=== PATIENT | male | born 1950 | race Caucasian/White ===

== ENCOUNTER 2023-11-06 21:34 | Emergency (ER) | payer MEDICARE, OTHER, SELFPAY ==
[2023-11-06 21:49] VITALS: BP 157/86
[2023-11-06 23:00] VITALS: BP 135/67
[2023-11-06 23:06] LABS: % Basophils 0.3 % (0-2); % Eosinophils 1.4 % (0-6); % Immature Granulocytes 0.3 % (0-0.5); % Lymphocytes 36.1 % (20.5-51.1); % Monocytes 8.6 % (1.7-9.3); % Neutrophils 53.3 % (42.2-75.2); Absolute Eosinophils 0.1 10^3/uL (0-0.7); Absolute Lymphocytes 3.5 10^3/uL (1.2-3.4); Absolute Monocytes 0.8 10^3/uL (0.1-0.6); Absolute Neutrophils 5.2 10^3/uL (1.4-6.5); Hematocrit 38.9 % (39.0-52.0); Hemoglobin 14.5 g/dL (13.0-18.0); Mean Corp Hgb Conc. 37.3 g/dL (33.0-37.0); Mean Corpuscular Hgb 33.7 pg (27.0-31.0); Mean Corpuscular Volume 90.5 fL (80.0-94.0); Mean Platelet Volume 10.7 fL (7.4-10.4); Nucleated Red Blood Cells % 0 % (-); Platelet Count 222 10^3/uL (130-400); Red Cell Dist. Width 12.1 % (11.5-14.5); White Blood Cell Count 9.8 10^3/uL (4.8-10.8)
[2023-11-06 23:35] LABS: ALT (SGPT) 26 U/L (0-50); AST (SGOT) 32 U/L (17-59); Albumin 4.2 g/dl (3.5-5.0); Alkaline Phosphatase 84 U/L (38-126); Blood Urea Nitrogen 25 mg/dl (9-20); Calcium 9.2 mg/dl (8.4-10.2); Carbon Dioxide 26 mmol/L (22-30); Chloride 100 mmol/L (98-107); Glucose 120 mg/dl (70-99); Potassium 3.8 mmol/L (3.5-5.1); Sodium 139 mmol/L (135-145); Total Bilirubin 0.8 mg/dl (0.2-1.3); Total Protein 6.6 g/dl (6.3-8.2); eGFR > 60.00
--- NOTE | 2023-11-07 00:31 | ED.GENMED ---
History of Present Illness
General
Chief Complaint: Dizziness
Source: patient
Exam Limitations: none
Time Seen by Provider: 11/06/23 23:07
History of Present Illness
History of Present Illness:
This is a 73 year old male that comes in by ambulance with c/o dizziness. States that he was playing pool. States that he had made his shot and went to the table to sit down. States that he got back up and walked to the table and he was dizzy.
States that his BP went up and he had a hot spell. State that his BP did come down. States that he was nauseated and vomited. States that he did work outside today and was not drinking much. Denies any fever, chills, chest pain, SOB, abd pain,
diarrhea, headache, urinary burning.
Past History
Past History
ED Past Medical History: Cancer (Melanoma) and Other (Dizziness, Vertigo, Hydrocephalus, Neuropathy. Meniere's disease)
ED Past Surgical History: Orthopedic (Knee surgery 2 on the left and 1 on the right) and Tonsilectomy
Social History
Tobacco: Former smoker
Alcohol: Occasional
Personal:
Living: alone
Review of Systems
Review of Systems
All Other Systems: ROS reviewed and negative except as documented in HPI and ROS
Constitutional: Reports no symptoms; Denies fever or chills
EENT: Reports no symptoms
Respiratory: Reports no symptoms; Denies cough or trouble breathing
Cardiac: Reports no symptoms; Denies chest pain
ABD/GI: Reports nausea and vomiting; Denies abdominal pain or diarrhea
: Reports no symptoms; Denies dysuria, frequency or urgency
Musculoskeletal: Reports no symptoms
Skin: Reports no symptoms
Neurological: Reports dizzy; Denies headache
Psychiatric: Reports no symptoms
Phy Exam
General Physical Exam
General Presentation: well appearing and no apparent distress
General age: appears stated age
General Skin: warm and dry
General Habitus: elderly
General Mental: alert
General Hydration: dry mucous membranes
ENT Exam
ENT Exam: TM's normal, pharynx normal and neck supple
Eye Exam
Eye Exam: EOMI
Cardiovascular Exam
Cardiovascular Exam: regular rate/rhythm, no edema and normal peripheral pulses
Pulmonary Exam
Pulmonary Exam: lungs clear, no respiratory distress, no rales, chest non tender, no crackles, no rhonchi, no wheezing and no cough
Gastrointestinal Exam
Gastrointestinal Exam: normal bowel sounds, non tender, soft, no organomegaly, no pulsatile mass and non distended
Musculoskeletal Exam
Musculoskeletal Exam: full ROM and no edema
Skin Exam
Skin Exam: normal color, warm/dry, no rash and no petechia
Psychiatric Exam
Psychiatric Exam: normal mood/affect
Course
Orders/Labs/Results
Orders:
Orders
11/06/23 21:52
EKG [Electrocardiogram (*1)] Urgent
Reason for Study: Vertigo / Dizzy
11/06/23 21:53
EKG- Treatment ONCE
11/06/23 22:34
Complete Blood Count/With Diff Urgent
11/06/23 23:13
Comprehensive Metabolic Panel Urgent
Comment: REDRAW
11/07/23 00:31
CT Head W/o Iv Contrast Urgent
Comment:
Reason For Exam: Dizziness
0.9% Sodium Chloride 1000 ml [Nss] 1,000 ml IV BOLUS
Abnormal Lab Results
11/06/23 11/06/23
22:34 23:13
RBC 4.30 L 10^6/uL
(4.70-6.10)
Hct 38.9 L %
(39.0-52.0)
MCH 33.7 H pg
(27.0-31.0)
MCHC 37.3 H g/dL
(33.0-37.0)
MPV 10.7 H fL
(7.4-10.4)
Absolute Lymphs (auto) 3.5 H 10^3/uL
(1.2-3.4)
Absolute Monos (auto) 0.8 H 10^3/uL
(0.1-0.6)
BUN 25 H mg/dl
(9-20)
Glucose 120 H mg/dl
(70-99)
11/06/23 22:34
11/06/23 23:13
Dehydration. Glucose nonfasting.
Vital Signs
Initial and Last Documented VS:
Initial Vital Signs
Temp Pulse Resp BP Pulse Ox
98.4 F 57 18 157/86 98
11/06/23 21:49 11/06/23 21:49 11/06/23 21:49 11/06/23 21:49 11/06/23 21:49
Last Documented Vital Signs
Temp Pulse Resp BP Pulse Ox
98.4 F 53 16 135/67 98
11/06/23 21:49 11/06/23 23:45 11/07/23 01:37 11/06/23 23:00 11/06/23 23:45
MDM/Problems Addressed
Differential Diagnosis Includes:
Dehydration. Vertigo
MDM/Problems Addressed:
This is a 73 year old male that was out playing pool and became dizzy. State that he did work outside all day and was not drinking water.
Will check labs. CT head and given IV fluids. Patient at this times denies any dizziness and was able to get up and walk to the bathroom without any difficulty.
Back into see patient. Explained that his CT of the head is normal and that his blood work shows that he is dehydrated. encouraged patient to increase his water intake to 8-8oz glasses daily. Follow up with the family doctor for recheck. Return
with any concerns.
Chronic conditions affecting care:
Vertigo
Acute Exacerbation and/or Progression of Chronic Illness:
Vertigo
*Radiology
Radiology exam reviewed: radiology read reviewed (CT head night hawk- NO acute intracranial finding. NO evidence of intracranial hemorrhage, mass-effect, midline shift, or extra-axial fluid collection. Dilated ventricles which appear to be out of
proportion to degree of cerebral volume loss, consider correlation for NPH. MIld chronic microvascular ) and other (CT cont- ischemic disease. )
*Pulse Oximetry
Patient hypoxic: no
*EKG
Interpreted by ED Provider?: Yes
Heart Rate: 51
Rate: bradycardiac
Rhythm: sinus
[place]: normal axis
Interval: normal interval
QRS Pattern: normal QRS
Ischemia: no ischemia
*Slag Mixer Interpretation
Rate: bradycardiac
Heart Rate: 56
Rhythm: sinus (Yovanny)
*Critical Care Note
Total Time (30-74mins, 75-104mins- exclusive of procedures): Not Applicable
ED Attending Note
-
Portions of this chart may have been created with voice recognition software.� Occasional wrong word or��sound alike� substitutions may have occurred due to the inherent limitations of voice recognition software.
Discharge Plan
Departure
Patient Disposition: Home (Routine Discharge)
Date of Disposition: 11/07/23
Time of Disposition: 01:47
Patient with high blood pressure during this ER visit?: Yes
Condition: Good
Covid-19: Not Applicable
Discharge Problem:
Dehydration, Dizziness
Instructions: Dehydration, Adult ED, Dizziness, BLOOD PRESSURE
Referrals:
Kai Levy MD [Family Provider] - Follow up in 2-3 days
Activity Restrictions/Additional Instructions:
As discussed, your blood work shows that you were Dehydrated. Please increase your water intake to 8-8oz glasses daily. Dehydration can cause dizziness. Your CT of the head is normal. Please follow up with the family doctor for recheck. IF YOU
HAVE INCREASED DIZZINESS OR YOU HAVE ANY OTHER CONCERNS PLEASE RETURN TO THE EMERGENCY ROOM
Interventions
Interventions:
*Risk Screen - Suicide Last Done: 11/06/23 21:49
*General Assessment Last Done: 11/06/23 21:49
ED- Neurological Assessment Last Done: 11/06/23 22:50
ED Swallowing Screen Last Done: 11/06/23 22:50
Discharge Date and Time
Print Language: BULGARIAN
[2023-11-07] MEDS: NSS 1000 IV (00:35)
[2023-11-07 01:55] VITALS: BP 134/74
== END 2023-11-07 02:09 | disposition home or self-care (01) ==
LOC: EMR 21:34
PROVIDERS: Emergency Medicine; EMERGENCY PHYSICIAN Student in an Organized Health Care Education/Training Program; FAMILY PHYSICIAN Family Medicine
DX: E86.0 Dehydration (principal); R42 Dizziness and giddiness; R03.0 Elevated blood-pressure reading, without diagnosis of hypertension; Z87.891 Personal history of nicotine dependence
CPT/HCPCS: 99285; 96360; 70450; 80053; 85025; 93005

== ENCOUNTER → 2024-07-12 11:34 | Outpatient (REF) | payer MEDICARE, OTHER, SELFPAY | LOC: HWRAD 11:34 | PROVIDERS: ATTENDING PHYSICIAN Nurse Practitioner; FAMILY PHYSICIAN Family Medicine | DX: M25.551 Pain in right hip (principal) | CPT/HCPCS: 73502 ==

== ENCOUNTER → 2024-09-01 13:11 | Outpatient (REF) | payer MEDICARE, OTHER, SELFPAY | LOC: MRI 3T 13:11 | PROVIDERS: ATTENDING PHYSICIAN Family Medicine | DX: R42 Dizziness and giddiness (principal); R41.3 Other amnesia | CPT/HCPCS: 70553; A9575 ==

== ENCOUNTER → 2024-12-23 13:11 | Outpatient (REF) | payer MEDICARE, OTHER, SELFPAY | LOC: SDSPAT 13:11 | PROVIDERS: ATTENDING PHYSICIAN Surgery; FAMILY PHYSICIAN Family Medicine | DX: K40.90 Unilateral inguinal hernia, without obstruction or gangrene, not specified as recurrent (principal); Z01.818 Encounter for other preprocedural examination | CPT/HCPCS: 36415; 93005 ==

== ENCOUNTER 2025-01-17 06:25 | Day surgery (SDC) | payer MEDICARE, OTHER, SELFPAY ==
[2024-12-23 13:45] VITALS: BMI 25.4
[2025-01-17] VITALS (10 sets, daily range): BP systolic 112–126; BP diastolic 58–71; BMI 25.4
[2025-01-17] MEDS: TYLENOL 1000 MG PO (08:47)
[2025-01-17] MEDS: NORMOSOL-R/PLASMALYTE-A 1000 IV (08:47)
--- NOTE | 2025-01-17 10:12 | OR.RPT ---
Operative Report
Operative Report
Primary Surgeon: Sydni
Assisting: Vanessa PARKER
Pre-op Diagnosis: Bilateral inguinal hernias
Post-op Diagnosis: Same
Procedure Performed: Robot assisted laparoscopic repair bilateral inguinal hernias
Anesthesia Type: GETA
Specimen / Cultures: None
Estimated Blood Loss: 10cc
Complications: None immediate
Operative Findings: Bilateral indirect defects, no cord lipomas, fat cord right side; B/L XL MID 3D max
Date of Surgery: 01/17/25
Indications: This 74M developed a symptomatic left inguinal hernia. On exam a right inguinal hernia was identified. He asked that we repair both sides today. Robot assisted laparoscopic repair was elected.
Description of procedure:� The patient was taken to the operating room and positioned into supine position. The patient�s abdomen was prepped and draped in standard sterile fashion. A time-out was completed verifying correct patient, procedure,
site, positioning, and implants and special equipment prior to beginning this procedure.
A stab incision was made in the left upper quadrant, a Veress needle was inserted and proper position was confirmed by aspiration and saline drop test. Following this, pneumoperitoneum was created with insufflation of carbon dioxide to 12 mmHg. Then
a 8mm robotic trocar was inserted above and to the left of the umbilicus. A laparoscope was inserted and the area of initial trocar entry and Veress needle placement were both inspected and no injuries were found. Two 8mm trocars were then placed
lateral to the rectus sheath under direct visualization.
Both inguinal regions were inspected and the median umbilical ligament, medial umbilical ligament, and lateral umbilical fold were identified. Attention was turned to the right groin. The peritoneum was incised transversely above the defect and a
flap was developed in the caudad direction. Erasmo�s ligament was identified ultimately dissected to its junction with the iliac vein and the space of Retzius was developed bluntly. The dissection was continued inferiorly to the iliopubic tract,
with care taken to avoid injury to the femoral branch of the genitofemoral nerve and the lateral femoral cutaneous nerve. The cord structures were parietalized.
The direct space was inspected and a hernia defect was not identified. The femoral space was inspected and no defect was identified. The indirect space was inspected a defect was identified and reduced. The canal was inspected and no cord lipoma was
identified. The cord was fatty.
Attention was turned to the left groin and the above process was repeated with similar findings, though the cord was less fatty on this side.
Extra large right and left MID 3D max mesh was passed through a trocar. The mesh was placed into the preperitoneal space and moved into position to lay flat and completely cover the direct, indirect, and femoral spaces with overlap at the midline.
The mesh was secured into place using 2-0 vicryl suture to Erasmo�s ligament medially and laterally. Care was taken to avoid the inferolateral triangles containing the iliac vessels and genital nerves. The peritoneal flap was closed over the mesh
and secured with 2-0 monocryl stratafix suture in similar positions of safety. A 14g angiocath was used to decompress the preperitoneal space revealing good seal and all mesh in good position without folding or curling.
After ensuring adequate hemostasis, the trocars were removed and the pneumoperitoneum allowed to escape. The trocar incisions were closed at the skin level using 4-0 monocryl and topical skin adhesive. Marcaine 0.25% with epinephrine was infiltrated
into the skin around the port incisions. All counts were correct and the patient tolerated the procedure well and was taken to the postanesthesia care unit in stable condition.
The assistance of Vanessa PARKER was required due to the complexity of the procedure. During the procedure she assisted with retraction, resection, and closure of the wound.
== END 2025-01-17 13:16 | disposition home or self-care (01) ==
LOC: SDS 06:25
PROVIDERS: ATTENDING PHYSICIAN Surgery; FAMILY PHYSICIAN Family Medicine
DX: K40.20 Bilateral inguinal hernia, without obstruction or gangrene, not specified as recurrent (principal)
CPT/HCPCS: 49650; C1781